=== PATIENT | female | born 1940 | race Caucasian/White ===

== ENCOUNTER 2019-03-22 05:32 | Inpatient (IN) | payer MEDICARE ==
[~2019-03-22] VITALS: Ht 149.9 cm; Wt 69.4 kg
[~2019-03-22 05:32] MED LIST: APIX5TAB PO; ATOR40TA78 PO; FOLI0.8T2 PO; LACT1CAP37 PO; LEVO125T5 PO; LOSA50TA14 PO; METF500T17 PO; METO50TA82 PO
[2019-03-22] MEDS ORDERED: LACTATED RINGERS 1,000 ML IV SCH (06:13)
[2019-03-22] MEDS ORDERED: VANCOMYCIN 1,000 MG ONE (06:14)
[2019-03-22] MEDS ORDERED: THROMBIN 5,000 UNIT VIAL TP ONE (06:14)
[2019-03-22] MEDS ORDERED: BACITRACIN 50,000 UNIT ONE (06:14)
[2019-03-22] MEDS ORDERED: EPINEPHRINE 1 MG/ML, 1ML ONE (06:17)
[2019-03-22] MEDS ORDERED: BUPIVACAINE/PF 0.5% ONE (06:20)
[2019-03-22] MEDS ORDERED: ACETAMINOPHEN 500 MG TABLET ONE (06:40)
[2019-03-22] MEDS ORDERED: GABAPENTIN 300 MG CAPSULE ONE (06:41)
[2019-03-22] MEDS ORDERED: FENTANYL PF 250 MCG/5ML ONE (06:55)
[2019-03-22] MEDS ORDERED: GABAPENTIN 300 MG CAPSULE PO ONE (07:00)
[2019-03-22] MEDS ORDERED: ACETAMINOPHEN 500 MG TABLET PO ONE (07:00)
[2019-03-22] MEDS ORDERED: SUCCINYLCHOLINE 20 MG/ML, 10ML ONE (07:58)
[2019-03-22] MEDS ORDERED: PROPOFOL 10 MG/ML, 20ML ONE (07:58)
[2019-03-22] MEDS ORDERED: CEFAZOLIN 1,000 MG ONE (07:58)
[2019-03-22] MEDS ORDERED: ROCURONIUM 10MG/ML,5ML ONE (07:58)
[2019-03-22] MEDS ORDERED: DEXAMETHASONE 4 MG/ML, 1ML ONE (07:58)
[2019-03-22] MEDS ORDERED: ONDANSETRON 2MG/ML, 2ML ONE (07:58)
[2019-03-22] MEDS ORDERED: hydrALAzine 20 MG/ML, 1ML IV PRN (08:00)
[2019-03-22] MEDS ORDERED: ALBUTEROL/IPRATROPIUM 2.5MG/0.5MG, 3 ML NPPB PRN (08:00)
[2019-03-22] MEDS ORDERED: DIAZEPAM 5 MG/ML, 2ML IVPush PRN (08:00)
[2019-03-22] MEDS ORDERED: PROMETHAZINE 25 MG/ML, 1ML IV PRN (08:00)
[2019-03-22] MEDS ORDERED: HYDROmorphone 2 MG/ML, 1ML IVPush PRN (08:00)
[2019-03-22] MEDS ORDERED: OXYcodone 5 MG/5 ML ORAL.SOL UDC PO PRN (08:00)
[2019-03-22] MEDS ORDERED: METOPROLOL 1 MG/ML, 5ML IV PRN (08:00)
[2019-03-22] MEDS ORDERED: LIDOCAINE-MPF 2% ,5ML ONE (08:07)
[2019-03-22] MEDS ORDERED: OXYcodone 5 MG/5 ML ORAL.SOL UDC ONE (08:45)
[2019-03-22] MEDS ORDERED: FENTANYL PF 100 MCG/2ML ONE ×2 (08:45→09:24)
[2019-03-22] MEDS ORDERED: PROMETHAZINE 25 MG/ML, 1ML ONE (08:55)
[2019-03-22] MEDS: LEVOTHYROXINE 125 MCG TABLET PO SCH (09:00)
[2019-03-22] MEDS: SODIUM CHLORIDE FLUSH 10ML SYR IVF SCH ×2 (09:00→21:00)
[2019-03-22] MEDS ORDERED: PHARMACY MAY ADJ FOR RENAL FX MC PRN (09:00)
[2019-03-22] MEDS ORDERED: NS + 20MEQ KCL 1,000 ML IV SCH (09:00)
[2019-03-22] MEDS: metFORMIN 500 MG TABLET PO SCH (09:00)
[2019-03-22] MEDS ORDERED: METHOCARBAMOL 750 MG TABLET PO PRN (09:00)
[2019-03-22] MEDS ORDERED: MAGNESIUM HYDROXIDE 8%, 30ML UDC PO PRN (09:00)
[2019-03-22] MEDS ORDERED: OXYcodone/APAP 5/325MG TABLET PO PRN (09:00)
[2019-03-22] MEDS ORDERED: HYDROcodone/APAP 5/325 TABLET PO PRN (09:00)
[2019-03-22] MEDS: LOSARTAN 50MG TABLET PO SCH (09:00)
[2019-03-22] MEDS ORDERED: PROMETHAZINE 25 MG/ML, 1ML IM PRN (09:00)
[2019-03-22] MEDS ORDERED: SENNA/DOCUSATE TABLET PO PRN (09:00)
[2019-03-22] MEDS: LACTOBACILLUS CHEW TABLET PO SCH (09:00)
[2019-03-22] MEDS ORDERED: ONDANSETRON 2MG/ML, 2ML IVPush PRN (09:00)
[2019-03-22] MEDS ORDERED: DIPHENHYDRAMINE 50 MG/ML, 1ML IVPush PRN (09:00)
[2019-03-22] MEDS ORDERED: morphine SULFATE 10 MG/ML, 1ML IVPush PRN (09:00)
[2019-03-22] MEDS: FENTANYL PF 100 MCG/2ML IV PRN ×3 (09:10→09:25)
[2019-03-22] MEDS ORDERED: LIDOCAINE GEL 2%, 5ML ONE (09:49)
[2019-03-22] MEDS: HYDROcodone/APAP 10/325 MG TABLET PO PRN ×2 (11:16→16:51)
[2019-03-22 13:23] VITALS: BP 123/71
[2019-03-22] MEDS ORDERED: PHENYLEPHRINE 10 MG/ML ONE (15:53)
[2019-03-22] MEDS ORDERED: PROPOFOL 10 MG/ML, 50ML ONE (15:53)
[2019-03-22] MEDS: CEFAZOLIN PMX 1GM/50ML 50 ML IVPB SCH (16:40)
[2019-03-22 18:43] VITALS: BP 96/58
[2019-03-22] MEDS ORDERED: ATORVASTATIN 40 MG TABLET PO SCH (21:00)
[2019-03-22] MEDS ORDERED: METOPROLOL TARTRATE 50 MG TABLET PO SCH (21:00)
[2019-03-23] MEDS: CEFAZOLIN PMX 1GM/50ML 50 ML IVPB SCH (00:29)
[2019-03-23] MEDS: HYDROcodone/APAP 10/325 MG TABLET PO PRN (00:49)
[2019-03-23 01:56] VITALS: BP 109/58
[2019-03-23 06:00] LABS: CREATININE 0.59 mg/dL (0.55-1.02)
[2019-03-23] MEDS: LEVOTHYROXINE 125 MCG TABLET PO SCH (06:33)
[2019-03-23 08:26] VITALS: BP 107/66
[2019-03-23] MEDS: LACTOBACILLUS CHEW TABLET PO SCH (08:30)
[2019-03-23] MEDS: LOSARTAN 50MG TABLET PO SCH (08:30)
[2019-03-23] MEDS: metFORMIN 500 MG TABLET PO SCH (08:30)
[2019-03-23] MEDS: SODIUM CHLORIDE FLUSH 10ML SYR IVF SCH (08:31)
[2019-03-23] MEDS ORDERED: FOLIC ACID 1 MG TABLET PO SCH (09:00)
[2019-03-23] MEDS ORDERED: METH750T87 PO (10:57)
[2019-03-23] MEDS ORDERED: CEPH-368 PO (10:57)
== END 2019-03-23 11:35 | disposition home or self-care (01) | DRG 472 ==
LOC: ORIP 05:32 → 4NE 10:01 → DCLOUNGE 03-23 11:19
PROVIDERS: ADMIT Neurological Surgery; ATTEND Neurological Surgery
PROC: 0RB30ZZ Excision of Cervical Vertebral Disc, Open Approach (ICD-10-PCS; 2019-03-22)
PROC: 01N10ZZ Release Cervical Nerve, Open Approach (ICD-10-PCS; 2019-03-22)
PROC: 4A11X4G Monitoring of Peripheral Nervous Electrical Activity, Intraoperative, External Approach (ICD-10-PCS; 2019-03-22)
PROC: 0RG10A0 Fusion of Cervical Vertebral Joint with Interbody Fusion Device, Anterior Approach, Anterior Column, Open Approach (ICD-10-PCS; principal; 2019-03-22 07:00)
DX: M48.02 Spinal stenosis, cervical region (principal); M50.021 Cervical disc disorder at C4-C5 level with myelopathy; M50.121 Cervical disc disorder at C4-C5 level with radiculopathy; I48.91 Unspecified atrial fibrillation; I10 Essential (primary) hypertension; E11.9 Type 2 diabetes mellitus without complications; E78.5 Hyperlipidemia, unspecified; M19.90 Unspecified osteoarthritis, unspecified site
CPT/HCPCS: 72040; 82565; 82962; 95938; 95941; C1713; G0378; J0171; J0690; J1100; J2405; J2550; J2704; J3010; J3370; J3480; C1762; J0330; J2370; J7120